=== PATIENT | male | born 2000 | race Caucasian/White ===

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

== ENCOUNTER 2018-09-29 16:00 | Emergency (ER) | payer OTHER | END 2018-09-29 16:35 | disposition home or self-care (01) | LOC: NAV ERS 16:00 | DX: E11.649 Type 2 diabetes mellitus with hypoglycemia without coma (principal); Z79.4 Long term (current) use of insulin | CPT/HCPCS: 36416; 99284 ==